=== PATIENT | female | born 1995 | race American Indian/Alaskan Native ===

== ENCOUNTER 2021-01-05 06:20 | Inpatient (IN) | payer OTHER ==
[2021-01-05] MEDS: ELECTROLYTE-148 SOLN 1,000 ML IV SCH (06:30)
[2021-01-05 07:24] VITALS: BMI 29.6
[2021-01-05] MEDS ORDERED: OXYTOCIN 20 UNITS in 0.9% NS 40 UNIT/2,000 ML INFUS.BAG IV ONE (07:55)
[2021-01-05] MEDS ORDERED: ceFAZolin SODIUM 1 GM VIAL ONE (07:58)
[2021-01-05] MEDS ORDERED: morphine SULFATE/PF 0.5 MG/ML (2cc Syringe - QUVA) ONE (07:58)
[2021-01-05] MEDS ORDERED: PHENYLEPHRINE HCL 10 MG/1 ML SINGLE DOSE VIAL ONE (08:07)
[2021-01-05] MEDS ORDERED: ONDANSETRON 4 MG/2 ML VIAL ONE (08:07)
[2021-01-05] MEDS ORDERED: DEXAMETHASONE SOD PHOSPHATE 4 MG/1 ML VIAL ONE (08:07)
[2021-01-05] MEDS ORDERED: PROMETHAZINE HCL 25 MG/1 ML VIAL IVPUSH ONE (08:26)
[2021-01-05] MEDS ORDERED: CITRIC ACID/SODIUM CITRATE 30 ML UNIT-DOSE CUP PO ONE (08:26)
[2021-01-05] MEDS ORDERED: IBUPROFEN 800 MG/8 ML IJ IVPB PRN (08:27)
[2021-01-05] MEDS ORDERED: WITCH HAZEL 50% (TUCKS) 40 PAD/JAR PAD TP PRN (08:27)
[2021-01-05] MEDS ORDERED: METHYLERGONOVINE MALEATE 0.2 MG/1 ML AMP IM PRN (08:27)
[2021-01-05] MEDS ORDERED: BENZOCAINE 20% 57 GM BOTTLE TP PRN (08:27)
[2021-01-05] MEDS ORDERED: KETOROLAC TROMETHAMINE 30 MG/1 ML VIAL ONE (09:12)
[2021-01-05] MEDS ORDERED: OXYTOCIN 10 UNITS/ML VIAL ONE (09:12)
[2021-01-05] MEDS ORDERED: BENZOCAINE 28 GM HEMORRHOIDAL OINTMENT TP PRN (09:26)
[2021-01-05] MEDS ORDERED: diphenhydrAMINE HCL 25 MG CAPSULE (FP) PO PRN (09:26)
[2021-01-05] MEDS ORDERED: ONDANSETRON 4 MG/2 ML VIAL IVPUSH PRN ×2 (09:48→14:51)
[2021-01-05] MEDS ORDERED: ACETAMINOPHEN 1000 MG/100 ML VIAL (NON FORMULARY) IVPB PRN (09:50)
[2021-01-05] MEDS: FERROUS SO4 325 MG TABLET (FP) PO SCH ×2 (10:14→22:57)
[2021-01-05 10:15] LABS: CORD BASE EXCESS -4.5 mmol/L (0-2); CORD HCO3 22.2 mmHg (20-29); CORD PCO2 46.4 mmHg (30-78); CORD pH 7.298 (7.14-7.44)
[2021-01-05] MEDS: PRENATAL VITAMINS W/ FOLIC ACID TABLET (FP) PO SCH (10:15)
[2021-01-05 10:18] LABS: CORD HCO3 22.8 mmHg (20-29); CORD PCO2 59.1 mmHg (30-78); CORD pH 7.204 (7.14-7.44)
[2021-01-05] MEDS: OXYTOCIN 20 UNITS in 0.9% NS 20 UNIT/1,000 ML INFUS.BAG IV SCH (10:20)
[2021-01-05] MEDS ORDERED: ONDANSETRON 4 MG/2 ML VIAL IVPUSH ONE (15:45)
[2021-01-06] MEDS ORDERED: BISACODYL 10 MG SUPP.RECT RC PRN (08:27)
[2021-01-06] MEDS: SIMETHICONE 80 MG TAB.CHEW (FP) PO PRN ×2 (09:09→19:59)
[2021-01-06] MEDS: PRENATAL VITAMINS W/ FOLIC ACID TABLET (FP) PO SCH (09:09)
[2021-01-06] MEDS: IBUPROFEN 600 MG TABLET (FP) PO PRN ×2 (09:09→17:49)
[2021-01-06] MEDS: FERROUS SO4 325 MG TABLET (FP) PO SCH ×2 (09:09→21:14)
[2021-01-06] MEDS ORDERED: oxyCODONE HCL 5 MG TABLET PO PRN ×2 (09:26)
[2021-01-06] MEDS ORDERED: DIPHTH,PERTUSS(ACELL),TET 0.5 ML DISP.SYRIN IM ONE (10:00)
[2021-01-06 10:38] LABS: BASO % 0.3 % (0-2.0); EOS % 0.7 % (0-4.5); HEMATOCRIT 36.7 % (32.4-45.2); HEMOGLOBIN 11.7 GM/dL (10.7-15.3); LYMPH % 11.6 % (8-40); MCH 25.4 pg (25.7-33.7); MCHC 31.8 g/dl (32.0-36.0); MEAN CELL VOLUME 79.8 fl (80-96); MEAN PLT VOLUME 7.4 fl (7.5-11.1); MONO % 6.3 % (3.8-10.2); NEUT % 81.1 % (42.8-82.8); PLATELET COUNT 268 10^3/uL (134-434); RDW 14.7 % (11.6-15.6); WHITE BLOOD COUNT 11.1 K/mm3 (4.0-10.0)
[2021-01-06] MEDS: ACETAMINOPHEN 325 MG TABLET (FP) PO PRN (19:58)
[2021-01-07] MEDS: ACETAMINOPHEN 325 MG TABLET (FP) PO PRN ×4 (00:10→20:18)
[2021-01-07] MEDS: IBUPROFEN 600 MG TABLET (FP) PO PRN ×4 (00:12→20:17)
[2021-01-07] MEDS: SIMETHICONE 80 MG TAB.CHEW (FP) PO PRN ×3 (10:04→20:17)
[2021-01-07] MEDS: PRENATAL VITAMINS W/ FOLIC ACID TABLET (FP) PO SCH (10:04)
[2021-01-07] MEDS: FERROUS SO4 325 MG TABLET (FP) PO SCH ×2 (10:04→21:59)
[2021-01-07] MEDS: OXYTOCIN 20 UNITS in 0.9% NS 20 UNIT/1,000 ML INFUS.BAG IV SCH (21:35)
[2021-01-07] MEDS: ELECTROLYTE-148 SOLN 1,000 ML IV SCH (21:36)
[2021-01-07] MEDS ORDERED: SENNOSIDES/DOCUSATE COMBO (SENNA PLUS) TABLET (UD) PO PRN (22:00)
[2021-01-08 08:41] LABS: BASO % 0.4 % (0-2.0); EOS % 2.5 % (0-4.5); HEMATOCRIT 36.3 % (32.4-45.2); HEMOGLOBIN 11.6 GM/dL (10.7-15.3); LYMPH % 17.1 % (8-40); MCH 25.4 pg (25.7-33.7); MCHC 31.8 g/dl (32.0-36.0); MEAN CELL VOLUME 79.8 fl (80-96); MEAN PLT VOLUME 7.2 fl (7.5-11.1); MONO % 5.1 % (3.8-10.2); NEUT % 74.9 % (42.8-82.8); PLATELET COUNT 298 10^3/uL (134-434); RBC 4.55 M/mm3 (3.60-5.2); WHITE BLOOD COUNT 8.3 K/mm3 (4.0-10.0)
[2021-01-08] MEDS: SIMETHICONE 80 MG TAB.CHEW (FP) PO PRN ×3 (10:11→22:46)
[2021-01-08] MEDS: FERROUS SO4 325 MG TABLET (FP) PO SCH ×2 (10:11→22:39)
[2021-01-08] MEDS: PRENATAL VITAMINS W/ FOLIC ACID TABLET (FP) PO SCH (10:11)
[2021-01-08] MEDS: ACETAMINOPHEN 325 MG TABLET (FP) PO PRN ×2 (16:03→22:46)
[2021-01-08] MEDS: IBUPROFEN 600 MG TABLET (FP) PO PRN ×2 (16:04→22:46)
[2021-01-09] MEDS: IBUPROFEN 600 MG TABLET (FP) PO PRN (09:30)
[2021-01-09] MEDS: PRENATAL VITAMINS W/ FOLIC ACID TABLET (FP) PO SCH (09:30)
[2021-01-09] MEDS: FERROUS SO4 325 MG TABLET (FP) PO SCH (09:30)
[2021-01-09] MEDS: ACETAMINOPHEN 325 MG TABLET (FP) PO PRN (09:31)
[2021-01-09 10:35] VITALS: BP 115/60; PULSE 83; TEMP 98.2
== END 2021-01-09 13:30 | disposition home or self-care (01) | DRG 540 ==
LOC: JLDR 06:20 → J3W 11:25
PROVIDERS: ADMIT Obstetrics & Gynecology; ATTEND Obstetrics & Gynecology
PROC: 10D00Z1 Extraction of Products of Conception, Low, Open Approach (ICD-10-PCS; principal; 2021-01-05)
DX: O32.1XX0 Maternal care for breech presentation, not applicable or unspecified (principal); Z3A.38 38 weeks gestation of pregnancy; Z37.0 Single live birth
CPT/HCPCS: 36415; 36600; 80053; 82803; 85025; 85610; 85730; 86780; 86850; 86900; 86901; 88307-TC; 90715; C9803; U0003; U0005

== ENCOUNTER 2023-10-07 09:48 | Inpatient (IN) | payer OTHER ==
[2023-10-07 10:56] VITALS: BMI 31.2
[2023-10-07] MEDS: ELECTROLYTE-148 SOLN 500 ML IV ONE (10:59)
[2023-10-07] MEDS ORDERED: ELECTROLYTE-148 SOLN 1,000 ML IV SCH (11:00)
[2023-10-07] MEDS: ELECTROLYTE-148 SOLN 1,000 ML IV SCH (12:15)
[2023-10-07] MEDS: CITRIC ACID/SODIUM CITRATE 30 ML UNIT-DOSE CUP PO ONE (12:25)
[2023-10-07] MEDS ORDERED: ACETAMINOPHEN 325 MG TABLET (FP) PO PRN (12:56)
[2023-10-07] MEDS ORDERED: OXYTOCIN 30 UNITS in 0.9% NS 30 UNIT/500 ML INFUS.BAG IVPB ONE (13:41)
[2023-10-07] MEDS ORDERED: morphine SULFATE/PF 1 MG/2 ML (2cc Syringe - QUVA) ONE (13:45)
[2023-10-07] MEDS ORDERED: METOCLOPRAMIDE HCL INJECTION 10 MG/2 ML VIAL ONE (13:45)
[2023-10-07] MEDS ORDERED: ONDANSETRON 4 MG/2 ML VIAL ONE (13:45)
[2023-10-07] MEDS ORDERED: DEXAMETHASONE SOD PHOSPHATE 4 MG/1 ML VIAL ONE (13:45)
[2023-10-07] MEDS ORDERED: ceFAZolin SODIUM 1 GM VIAL ONE (13:45)
[2023-10-07] MEDS ORDERED: FENTANYL CITRATE/PF 50 MCG/ML VIAL ONE (13:45)
[2023-10-07] MEDS ORDERED: KETOROLAC TROMETHAMINE 30 MG/1 ML VIAL ONE (14:20)
[2023-10-07] MEDS ORDERED: OXYTOCIN 20 UNITS in 0.9% NS 20 UNIT/1,000 ML INFUS.BAG IV ONE (14:48)
[2023-10-07] MEDS ORDERED: ONDANSETRON 4 MG/2 ML VIAL IVPUSH PRN (14:51)
[2023-10-07] MEDS: OXYTOCIN 20 UNITS in 0.9% NS 20 UNIT/1,000 ML INFUS.BAG IV SCH (15:00)
[2023-10-07 15:02] LABS: CORD HCO3 24.9 mmHg (20-29); CORD PCO2 56.7 mmHg (30-78); CORD pH 7.261 (7.14-7.44)
[2023-10-07 15:05] LABS: CORD BASE EXCESS -3.7 mmol/L (0-2); CORD HCO3 22.2 mmHg (20-29); CORD PCO2 43.4 mmHg (30-78); CORD pH 7.327 (7.14-7.44)
[2023-10-07] MEDS: morphine SULFATE/PF 1 MG/2 ML (2cc Syringe - QUVA) IT ONE (15:07)
[2023-10-08] MEDS: IBUPROFEN 800 MG/8 ML IJ IVPB PRN (04:33)
[2023-10-08] MEDS: SIMETHICONE 80 MG TAB.CHEW (FP) PO PRN (04:33)
[2023-10-08 07:14] LABS: BASO % 0.2 % (0-2.0); EOS % 0.5 % (0-4.5); HEMATOCRIT 30.3 % (32.4-45.2); HEMOGLOBIN 10.1 GM/dL (10.7-15.3); LYMPH % 17.4 % (8-40); MCH 26.9 pg (25.7-33.7); MCHC 33.3 g/dl (32.0-36.0); MEAN CELL VOLUME 80.9 fl (80-96); MEAN PLT VOLUME 8.5 fl (7.5-11.1); NEUT % 73.9 % (42.8-82.8); PLATELET COUNT 178 10^3/uL (134-434); RBC 3.75 M/mm3 (3.60-5.2); RDW 14.6 % (11.6-15.6); WHITE BLOOD COUNT 10.8 K/mm3 (4.0-10.0)
[2023-10-08] MEDS: IBUPROFEN 600 MG TABLET (FP) PO PRN (11:10)
[2023-10-08] MEDS ORDERED: BISACODYL 10 MG SUPP.RECT RC PRN (12:56)
[2023-10-08] MEDS: DIPHTH,PERTUSS(ACELL),TET 0.5 ML DISP.SYRIN IM ONE (13:48)
[2023-10-09] MEDS: oxyCODONE HCL 5 MG TABLET PO PRN ×2 (04:43→08:34)
[2023-10-10 08:45] LABS: BASO % 0.5 % (0-2.0); EOS % 3.5 % (0-4.5); HEMATOCRIT 36.5 % (32.4-45.2); HEMOGLOBIN 11.7 GM/dL (10.7-15.3); LYMPH % 19.6 % (8-40); MCH 26.1 pg (25.7-33.7); MCHC 32.1 g/dl (32.0-36.0); MEAN CELL VOLUME 81.3 fl (80-96); MEAN PLT VOLUME 8.2 fl (7.5-11.1); MONO % 7.4 % (3.8-10.2); PLATELET COUNT 246 10^3/uL (134-434); RBC 4.48 M/mm3 (3.60-5.2); RDW 14.4 % (11.6-15.6); WHITE BLOOD COUNT 7.3 K/mm3 (4.0-10.0)
[2023-10-10 12:23] VITALS: BP 93/66; PULSE 82; RESP 16; TEMP 98.4
== END 2023-10-10 12:30 | disposition home or self-care (01) | DRG 540 ==
LOC: JLDR 09:48 → J3W 17:19
PROVIDERS: ADMIT Student in an Organized Health Care Education/Training Program; ATTEND Student in an Organized Health Care Education/Training Program
PROC: 10D00Z1 Extraction of Products of Conception, Low, Open Approach (ICD-10-PCS; principal; 2023-10-07)
DX: O34.211 Maternal care for low transverse scar from previous cesarean delivery (principal); N85.8 Other specified noninflammatory disorders of uterus; O24.429 Gestational diabetes mellitus in childbirth, unspecified control; Z3A.39 39 weeks gestation of pregnancy; Z37.0 Single live birth
CPT/HCPCS: 36415; 36600; 80053; 81003; 82803; 82962; 85025; 85610; 86780; 86850; 86900; 86901; 88307-TC; 90715; 94010